=== PATIENT | male | born 1950 | race Caucasian/White ===

== ENCOUNTER 2016-11-18 08:38 | Emergency (ER) | payer MEDICARE ==
[~2016-11-18] VITALS: Ht 172.7 cm; Wt 99.8 kg
--- NOTE | ~2016-11-18 | EKG ---
PATIENT: JESSA MOORE UNIT #: [id number] Ventricular Rate: 58 BPM Atrial Rate: 58 BPM P-R Interval: 140 ms QRS Duration: 102 ms Q-T Interval: 462 ms QTC Calculation(Bezet): 453 ms P Elfrida: 58 degrees Calculated R Elfrida: -35 degrees Calculated T Elfrida: 72 degrees Diagnosis Line: Sinus bradycardia Diagnosis Line: Left axis deviation Diagnosis Line: Pulmonary disease pattern Diagnosis Line: Incomplete right bundle branch block Diagnosis Line: Abnormal ECG Diagnosis Line: No previous ECGs available Diagnosis Line: Confirmed by ADAM HAMILTON MD ([id number]) on 11/19/2016 Diagnosis Line: 5:52:39 PM INTERPRETING MD: JOY ELENA
[~2016-11-18 08:38] MED LIST: AVANDAMET 4 MG/1 TAB PO; AVAPRO PO; AVAPRO300 M1 PO; FLEXERIL10 M1 PO; LANTUS100 U/ML; LANTUS100 U/ML INJ; LIPITOR PO; MIRALAX17 G1 PO; NOVOLOG100 U/ML; SENNA PO; VOLTAREN75 MG PO
[2016-11-18 10:04] LABS: BASOPHIL% 0.5 % (0-2.5); EOSINOPHIL% 0.5 % (0.0-7.0); HEMATOCRIT 48.3 % (38.0-50.0); HEMOGLOBIN 16.4 gm/dL (13.0-16.0); LYMPHOCYTE# 1.3 X10e3 (1.0-3.5); LYMPHOCYTE% 15.8 % (17.0-45.0); MEAN CELL VOLUME 91.6 FL (83-96); MEAN CORPUSCULAR HEMOGLOBIN 31.1 PG (28-34); MEAN CORPUSCULAR HGB CONC 33.9 g/dL (30-36); MEAN PLATELET VOLUME 9.4 FL (6.5-11.5); MONOCYTE# 0.4 X10e3 (0-1.0); MONOCYTE% 5.3 % (3.0-12.0); NEUTROPHIL# 6.6 X10e3 (1.5-7.1); NEUTROPHIL% 77.9 % (40-75); PLATELET COUNT 129 X10e3 (140-420); RED BLOOD COUNT 5.28 X10e (3.90-5.60); RED CELL DISTRIBUTION WIDTH 13.3 % (11.0-15.5); WHITE BLOOD COUNT 8.5 X10e3 (4.0-10.5)
[2016-11-18 10:05] LABS: DIFF IND NO
[2016-11-18 10:09] LABS: POC - CKMB <1.0 ng/mL (0.0-7.9); POC - TROPONIN <0.05 ng/mL (<=0.05)
[2016-11-18 10:29] LABS: URINE SOURCE CLEAN CATCH
[2016-11-18 10:35] LABS: URINE APPEARANCE CLEAR; URINE BILIRUBIN NEG (NEG); URINE BLOOD NEG (NEG); URINE COLOR YELLOW; URINE GLUCOSE >1000 MG/DL (NEG); URINE KETONE 1+ (NEG); URINE LEUKOCYTE ESTERASE NEG (NEG); URINE NITRATE NEG (NEG); URINE PH 7.5 (5-8); URINE PROTEIN NEG (NEG); URINE UROBILINOGEN 0.2 MG/DL (NEG)
[2016-11-18 10:39] LABS: CULTURE INDICATED? NO
[2016-11-18 10:43] LABS: ALBUMIN SERUM 3.8 g/dL (3.5-5.0); BILIRUBIN, DIRECT 0.2 mg/dL (0.0-0.2); BILIRUBIN,INDIRECT 1.2 mg/dL (0.0-0.9); BILIRUBIN,TOTAL 1.4 mg/dL (0.2-2.0); BUN/CREATININE RATIO 13.57; CALCIUM SERUM 9.7 mg/dL (8.4-10.2); CREATININE SERUM 1.4 mg/dL (0.6-1.4); GLOM FILT RATE Estimated 51.3 mL/min (>60)
[2016-11-18 10:45] LABS: POTASSIUM 5.9 mmol/L (3.5-5.1)
[2016-11-18 14:40] LABS: BUN/CREATININE RATIO 13.84; CALCIUM SERUM 9.1 mg/dL (8.4-10.2); CREATININE SERUM 1.3 mg/dL (0.6-1.4); GLOM FILT RATE Estimated 56.1 mL/min (>60)
[2016-11-18 14:41] LABS: POTASSIUM 4.3 mmol/L (3.5-5.1)
== END 2016-11-18 15:42 | disposition home or self-care (01) ==
LOC: CED 08:38
PROVIDERS: Emergency Medicine
DX: R42 Dizziness and giddiness (principal); E11.9 Type 2 diabetes mellitus without complications; I10 Essential (primary) hypertension; Z90.49 Acquired absence of other specified parts of digestive tract
CPT/HCPCS: 36415; 80048; 80076; 81003; 82553; 82947; 84484; 85025; 93005; 96361; 96374; 96375; 99284; J1100

== ENCOUNTER → 2016-12-11 | Outpatient (CLI) | payer MEDICARE ==
--- NOTE | ~2016-12-11 | US85 ---
[facility] A Service of [facility] & [facility] RADIOLOGY TEXT RESULTS PATIENT: JESSA MOORE LOCATION: CNIV : 46 UNIT #: [id number] AGE: [address]: Zhanna Wells MD SEX: M ORDER DR: [id number] [facility] [address] [place], [place] [address] [id number] O MR#: [id number] Acc #: [id number] NAME: JESSA MOORE : 1950 SEX: M STUDY DATE/TIME: 12/11/2016 17:04 UNIT: CNIV ROOM: STUDY DESCRIPTION: [facility] or [facility] Attending Physician: Zhanna Wells M.D. Referring Physician: Zhanna Wells M.D. Ordering Physician: Zhanna Wells M.D. Primary Care Physician: Zhanna Wells M.D. MEDICAL IMAGING REPORT This report is preliminary unless electronic signature is present EXAM Right lower extremity venous duplex. HISTORY Right lower extremity injury to calf. EXAMINATION Duplex imaging to the right lower extremity reveals patent femoral, popliteal, tibial, and peroneal veins with normal venous filling in all the visualized veins. No evidence of DVT is seen. IMPRESSION No evidence of DVT is seen in the right lower extremity. Dictated by... Jasen Amezcua M.D. THIS IS AN ELECTRONICALLY VERIFIED REPORT Jasen Amezcua M.D. at 12/12/2016 3:31 PM /samia TD: 12/12/2016 12:45 JOB #: [id number] MEDICAL IMAGING REPORT Page 1 of 1 COPY
== END | disposition home or self-care (01) ==
LOC: CNIV 16:30
DX: T14.8 Other injury of unspecified body region (principal)
CPT/HCPCS: 93971